=== PATIENT | female | born 2000 | race Caucasian/White ===

== ENCOUNTER 2022-07-23 17:08 | Emergency (ER) | payer OTHER, SELFPAY ==
--- NOTE | ~2022-07-23 | CT_ITS ---
EXAMINATION: CT abdomen pelvis w con INDICATION: Abdominal pain TECHNIQUE: Computed tomographic images of the abdomen and pelvis were obtained after the administrati on of 100 cc of Omnipaque 350 intravenous contrast. The dose-length product (DLP) was 532.31 mGy-cm. Automated exposure control and iterative reconstruction technique were employed. COMPARISON: None available FINDINGS: The lung bases are clear. The heart size is normal. There is a small sliding hiatal hernia. The liver, spleen, pancreas, gallbladder, and adrenal glands are normal. The kidneys are unremarkabl e. No pathologically enlarged abdominal or pelvic lymph nodes are identified. No free intraperitoneal gas or evidence of bowel obstruction. There is circumferential wall thickening involving small bowel loops in the midabdomen and pelvis. There appear to be some areas of interval sparing. A contracepti ve device is noted in the vagina. There is a trace amount of pelvic ascites. IMPRESSION: 1. Small bowel findings as described above which could reflect infection or inflammatory bowel diseas e such as Crohn disease. Reviewed, dictated and finalized at location F. IMPRESSION: 1. Small bowel findings as described above which could reflect infection or inf lammatory bowel disease such as Crohn disease.
[2022-07-23 17:11] VITALS: BP 131/81; PULSE 105; RESP 18; TEMP 36.2; O2SAT 100
[2022-07-23 17:37] VITALS: BP 141/82; PULSE 96; RESP 18; O2SAT 97
[2022-07-23 17:56] LABS: Alanine Aminotransferase 16 U/L (6-35); Albumin Level 4.5 g/dL (3.5-5.1); Alkaline Phosphatase 84 U/L (38-126); Anion Gap 11 mmol/L (8-16); Aspartate Amino Transferase 16 U/L (14-36); Basophils Percent Auto 0.2 % (0.2-1.2); Bilirubin,Total 0.7 mg/dL (0.2-1.3); Blood Urea Nitrogen 9 mg/dL (7-17); Carbon Dioxide 20 mmol/L (22-30); Chloride 105 mmol/L (98-107); Eosinophils Absolute Auto 0.1 K/mm3 (0-0.3); Eosinophils Percent Auto 0.3 % (0-4.4); Estimated CRCL calculation 112 ml/min; Estimated Glomerular Filt Rate > 60; Glucose 89 mg/dL (65-110); Hematocrit 40.8 % (37.0-47.0); Hemoglobin 13.5 g/dL (12.0-15.0); Immature Granulocyte Absolute 0.11 K/mm3 (0.00-0.031); Immature Granulocyte Percent A 0.6 % (0-0.5); Lipase 37 U/L (23-300); Lymphocytes Absolute Auto 1.86 K/mm3 (0.9-3.2); Lymphocytes Percent Auto 10.2 % (18.3-44.2); Mean Corpuscular HGB Conc 33.1 g/dl (32-36); Mean Corpuscular Hemoglobin 28.5 pg (26-34); Mean Corpuscular Volume 86.1 fl (80-100); Mean Platelet Volume 10.3 fl (7.4-10.4); Monocytes Absolute Auto 1.1 K/mm3 (0.1-0.6); Monocytes Percent Auto 5.9 % (2.6-8.5); Neutrophils Absolute Auto 15.1 K/mm3 (1.3-6.7); Neutrophils Percent Auto 82.8 % (45.5-73.1); Platelet Count Result 369 k/mm3 (150-375); Potassium 3.6 mmol/L (3.4-5.0); Red Blood Count 4.74 M/mm3 (4.2-5.4); Red Cell Distribution Width 12.8 % (11.5-14.5); Sodium 136 mmol/L (137-145); White Blood Count 18.3 K/mm3 (4.5-10.0)
[2022-07-23 18:23] LABS: Appearance Urine Turbid (Clear); Bacteria Urine 3+ /hpf; Bilirubin Urine 2+ (Negative); Blood Urine 3+ (Negative); Color Urine Dark Yellow (Yellow); Glucose Urine UA Negative (Negative); Ketones Urine 4+ mg/dL (Negative); Leukocyte Esterase Ur Trace LEU/UL (Negative); Need Manual Microscopic Reviewed; Nitrate Urine Negative (Negative); Protein Urine 2+ mg/dL (Negative); RBC Urine 51-100 /hpf (0-2); Squamous Epithelial Cell Urine Many /hpf (Few); WBC Urine 21-50 /hpf
[2022-07-23 18:27] LABS: Add Urine Microscopic? YES; Specific Grav Ur 1.039 (1.001-1.035)
--- NOTE | 2022-07-23 18:41 | ED.ABDPAIN ---
HPI - Abdominal Pain General Chief Complaint: Abdominal Pain Stated Complaint: abdominal pain Time Seen by Provider: 07/23/22 17:31 History of Present Illness HPI narrative: 21-year-old female presented to the emergency department for evaluation of abdominal pain. Patient was initially diagnosed with strep throat yesterday. At that time patient was having sore throat with enlarged lymph nodes. Patient was also having some abdominal pain. Patient was started on antibiotics yesterday. Patient did not start having worsening pain until approximately 230 today when she began having worsening abdominal pain. Patient does have some associated nausea and vomiting. Patient denies any constipation or diarrhea. Patient denies any pain with urination. Patient has no prior history of gastritis Related Data Allergies Allergy/AdvReac Type Severity Reaction Status Date / Time No Known Allergies Allergy Verified 07/23/22 17:14 Review of Systems Review of Systems: All systems reviewed & are unremarkable except as noted in HPI and below Exam Narrative: APPEARANCE: Well appearing, no pain, no distress, well-nourished. HEAD: normocephalic, atraumatic. EYES: PERRLA/EOMI, conjunctivae clear. NOSE: Normal no drainage NECK: Supple. No adenopathy, no masses. RESPIRATORY: Airway patent, respirations nonlabored. Clear to auscultation bilaterally, no rales, rhonchi, wheezing. CARDIOVASCULAR: Regular rate and rhythm without murmurs rubs or gallops. ABDOMINAL: Soft, normal bowel sounds, nondistended, generalized tenderness without evidence of peritonitis MUSCULOSKELETAL: Moves all extremities. Strength/ROM intact, No edema, No calf tenderness. NEURO: Alert. Cranial nerves II through XII intact. Grossly intact SKIN: Warm, dry. Normal Color Course Course Emergency Course: 21-year-old female present emerged department for evaluation of sore throat and abdominal pain. Patient does have a leukocytosis of 18.3 but does have a diagnosis of strep throat. No significant abnormalities on the CMP. UA did have evidence of infection but patient was complaining of any urinary symptoms. Due to her persistent abdominal pain a CT scan was ordered, CT scan did show evidence of infection versus inflammation and possible inflammatory bowel disease. With the possibility of colitis patient was switched to Cipro and Flagyl. The Cipro would also help to cover a possible urinary tract infection. Patient was advised to stop taking the amoxicillin and she was treated with IM penicillin. Patient was updated on the plan for treatment at home and encouraged to have close follow-up with her primary care physician and with GI. Patient was advised to follow a clear liquid diet. All questions and concerns were addressed and patient was well-appearing at time of discharge. Vital Signs Vital signs: Vital Signs Temperature 97.2 F L 07/23/22 17:11 Pulse Rate 105 H 07/23/22 17:11 Respiratory Rate 18 07/23/22 17:11 Blood Pressure 131/81 07/23/22 17:11 Pulse Oximetry 100 07/23/22 17:11 Oxygen Delivery Room Air 07/23/22 17:11 Temperature 97.9 F 07/23/22 20:54 Pulse Rate 76 07/23/22 20:54 Respiratory Rate 15 07/23/22 20:54 Blood Pressure 107/75 07/23/22 20:54 Pulse Oximetry 98 07/23/22 20:54 Oxygen Delivery Room Air 07/23/22 17:11 MDM - Abdominal Pain Differential Diagnosis Differential diagnosis: Likely abdominal pain, acute appendicitis, constipation, diverticulitis, gastroenteritis, pancreatitis and small bowel obstruction Lab Data Attestation: I reviewed the patient's lab results. 07/23/22 17:20 07/23/22 17:20 Labs: Lab Results 07/23/22 07/23/22 Range/Units 17:20 17:36 WBC 18.3 H (4.5-10.0) K/mm3 RBC 4.74 (4.2-5.4) M/mm3 Hgb 13.5 (12.0-15.0) g/dL Hct 40.8 (37.0-47.0) % MCV 86.1 (80-100) fl MCH 28.5 (26-34) pg MCHC 33.1 (32-36) g/dl RDW 12.8 (11.5-14.5) %
[2022-07-23] MEDS: ONDANSETRON INJ 4 MG/2 ML VIAL IV PUSH (18:42)
[2022-07-23] MEDS: SODIUM CHLORIDE 0.9% IV 1,000 ML 999 ML IV CONT (18:42)
[2022-07-23] MEDS: HYDROmorphone HCL INJ (*CRX) 1 MG/ML SYR IV PUSH (18:46)
[2022-07-23 19:07] VITALS: BP 114/75; PULSE 104; RESP 15; TEMP 36.6; O2SAT 100
[2022-07-23] MEDS: PENICILLIN G BENZATHINE 1,200,000 UNITS/2 ML SYRINGE 1200000 UNITS IM (20:46)
[2022-07-23] MEDS: metroNIDAZOLE 250 MG TABLET 500 MG PO (20:46)
[2022-07-23] MEDS: CIPROFLOXACIN 500 MG TAB PO (20:46)
[2022-07-23 20:54] VITALS: BP 107/75; PULSE 76; RESP 15; TEMP 36.6; O2SAT 98
== END 2022-07-23 20:55 | disposition home or self-care (01) ==
PROVIDERS: Family Medicine; Emergency Provider Emergency Medicine; PCP Family Medicine
DX: R10.9 Unspecified abdominal pain (principal); J02.0 Streptococcal pharyngitis; R82.998 Other abnormal findings in urine; R93.3 Abnormal findings on diagnostic imaging of other parts of digestive tract
CPT/HCPCS: 36415; 74177; 80053; 81001; 81025; 83690; 85025; 87086; 96361; 96372; 96374; 96375; 99284; A9270; J0561; J1170; J2405; J7030; Q9967